=== PATIENT | female | born 1965 | race Caucasian/White ===

== ENCOUNTER 2020-08-20 08:01 | Emergency (ER) | payer OTHER ==
[~2020-08-20] VITALS: Ht 157.5 cm; Wt 81.6 kg
[2020-08-20] MEDS ORDERED: COZAAR100 MG (08:24)
[2020-08-20] MEDS ORDERED: LEVO-T125 MCG (08:24)
[2020-08-20] MEDS ORDERED: CYCLOBENZAPRINE10 MG PO (13:33)
[2020-08-20] MEDS ORDERED: VISTARIL50 MG PO (13:33)
[2020-08-20] MEDS ORDERED: VOLTAREN-XR100 MG PO (13:33)
== END 2020-08-20 13:44 ==
LOC: ER 08:01
DX: G58.8 Other specified mononeuropathies (principal); M79.7 Fibromyalgia; G62.89 Other specified polyneuropathies; M62.830 Muscle spasm of back; Z20.822 Contact with and (suspected) exposure to COVID-19